=== PATIENT | male | born 1985 | race Caucasian/White ===

== ENCOUNTER 2017-01-25 21:47 | Emergency (ER) | payer OTHER ==
[~2017-01-25] VITALS: Ht 185.4 cm; Wt 122.5 kg
[2017-01-25] MEDS ORDERED: KETOROLAC 60 MG/2 ML VIAL (J1885) IM ONE (23:15)
[2017-01-26] MEDS ORDERED: KETOROLAC TROMETHAMINE 10 MG TAB PO ONE
[2017-01-26] MEDS ORDERED: KETO10TAB PO (00:29)
[2017-01-26 00:34] VITALS: BP 144/87
--- NOTE | 2017-01-26 08:08 | REP ---
Chest two views HISTORY: Cough Comparison: None The lungs are clear. The heart is normal in size. The pulmonary vasculature is normal in appearance. The bony structure is intact. IMPRESSION: No acute disease. Signed by Liu Gold MD 01/26/2017 07:59 A
== END 2017-01-26 00:37 | disposition home or self-care (01) ==
LOC: M ED 23:15
DX: S46.911A Strain of unspecified muscle, fascia and tendon at shoulder and upper arm level, right arm, initial encounter (principal); S46.912A Strain of unspecified muscle, fascia and tendon at shoulder and upper arm level, left arm, initial encounter; X58.XXXA Exposure to other specified factors, initial encounter; Y92.89 Other specified places as the place of occurrence of the external cause; Y93.89 Activity, other specified; Y99.8 Other external cause status; R05 Cough

== ENCOUNTER 2021-05-29 21:12 | Emergency (ER) | payer OTHER ==
[~2021-05-29] VITALS: Ht 182.9 cm; Wt 149.5 kg
[2021-05-29 21:12] VITALS: BP 140/91
[~2021-05-29 21:12] MED LIST: KETO10TAB PO
[2021-05-30] MEDS ORDERED: CLOT1CRE56 TOP (16:23)
== END 2021-05-29 21:21 | disposition left against medical advice (07) ==
LOC: M ED 21:12
DX: Z53.29 Procedure and treatment not carried out because of patient's decision for other reasons (principal)

== ENCOUNTER 2021-05-30 12:15 | Emergency (ER) | payer OTHER ==
[~2021-05-30] VITALS: Ht 182.9 cm; Wt 149.8 kg
--- NOTE | 2021-05-30 15:31 | REP ---
INDICATION: r/o L inguinal hernia. COMPARISON: None. TECHNIQUE: Left inguinal canal sonography. With and without Valsalva maneuver. FINDINGS: There are several hypertrophied lymph nodes in the left groin soft tissues. The largest of these measures 5.1 x 1.1 x 3.4 cm. There is cortical hypertrophy with some preservation of fatty hilar architecture. No abnormal fluid collection is seen. There appears to be fat containing left inguinal hernia with little change with Valsalva. IMPRESSION: There is left inguinal lymphadenopathy of uncertain significance. Consider follow-up scan to document stability. Findings consistent with a small left inguinal hernia containing abdominal fat. <Electronically signed by Anil Solorio > 05/30/21 [id number]
[2021-05-30 15:39] LABS: BASO # 0.1 10^3/uL (0.0-0.2); BASO % 0.6 % (0.0-1.0); EOS # 0.4 10^3/uL (0.0-0.5); EOS % 3.8 % (0.0-3.0); HEMATOCRIT 47.1 % (42.0-52.0); HEMOGLOBIN 15.7 g/dl (13.5-17.5); LYMPH # 2.5 10^3/uL (1.5-5.0); LYMPH % 23.1 % (24.0-44.0); MEAN CORPUSCULAR HEMOGLOBIN 30.8 pg (27.0-33.0); MEAN CORPUSCULAR HGB CONC 33.3 g/dl (32.0-36.5); MEAN CORPUSCULAR VOLUME 92.4 fl (80.0-96.0); MONO # 0.6 10^3/uL (0.0-0.8); MONO % 5.3 % (2.0-8.0); NEUTROPHILS # 7.2 10^3/uL (1.5-8.5); NEUTROPHILS % 66.3 % (36.0-66.0); PLATELET COUNT, AUTOMATED 250 10^3/uL (150-450); WHITE BLOOD COUNT 10.9 10^3/uL (4.0-10.0)
[2021-05-30 16:10] LABS: ALBUMIN 3.2 GM/DL (3.2-5.2); ALT/SGPT 87 U/L (12-78); BILIRUBIN,DIRECT < 0.1 MG/DL (0.0-0.2); BILIRUBIN,TOTAL 0.4 MG/DL (0.2-1.0); BLOOD UREA NITROGEN 11 MG/DL (7-18); CALCIUM LEVEL 9.3 MG/DL (8.5-10.1); CARBON DIOXIDE LEVEL 23 MEQ/L (21-32); CHLORIDE LEVEL 106 MEQ/L (98-107); CREATININE FOR GFR 0.82 MG/DL (0.70-1.30); GLOMERULAR FILTRATION RATE > 60.0 (>60); GLUCOSE, FASTING 125 MG/DL (70-100); SODIUM LEVEL 136 MEQ/L (136-145); TOTAL PROTEIN 7.7 GM/DL (6.4-8.2)
[2021-05-30] MEDS ORDERED: CLOT1CRE56 TOP (16:23)
[2021-05-30 16:32] VITALS: BP 138/72
[2021-05-30 17:09] LABS: GC DNA AMPLIFICATION NEGATIVE (NEGATIVE)
== END 2021-05-30 16:33 | disposition home or self-care (01) ==
LOC: M ED 12:15
DX: K40.90 Unilateral inguinal hernia, without obstruction or gangrene, not specified as recurrent (principal); R59.9 Enlarged lymph nodes, unspecified; F17.210 Nicotine dependence, cigarettes, uncomplicated

== ENCOUNTER → 2021-06-06 | Outpatient (CLI) | payer OTHER ==
[~2021-06-06] MED LIST changes: +CLOT1CRE56 TOP
[2021-06-06 17:57] LABS: BASO # 0.1 10^3/uL (0.0-0.2); BASO % 0.5 % (0.0-1.0); EOS # 0.3 10^3/uL (0.0-0.5); EOS % 2.5 % (0.0-3.0); HEMATOCRIT 46.6 % (42.0-52.0); HEMOGLOBIN 15.5 g/dl (13.5-17.5); LYMPH # 2.3 10^3/uL (1.5-5.0); LYMPH % 20.9 % (24.0-44.0); MEAN CORPUSCULAR HEMOGLOBIN 30.9 pg (27.0-33.0); MEAN CORPUSCULAR HGB CONC 33.3 g/dl (32.0-36.5); MEAN CORPUSCULAR VOLUME 92.8 fl (80.0-96.0); MONO # 0.6 10^3/uL (0.0-0.8); MONO % 5.1 % (2.0-8.0); NEUTROPHILS # 7.6 10^3/uL (1.5-8.5); NEUTROPHILS % 70.1 % (36.0-66.0); PLATELET COUNT, AUTOMATED 258 10^3/uL (150-450); RED BLOOD COUNT 5.02 10^6/uL (4.30-6.10); WHITE BLOOD COUNT 10.9 10^3/uL (4.0-10.0)
[2021-06-06 18:04] LABS: INR 0.92; PROTHROMBIN TIME 12.8 SECONDS (12.7-14.5)
[2021-06-06 18:05] LABS: PARTIAL THROMBOPLASTIN TIME 28.1 SECONDS (25.9-37.0)
[2021-06-06 18:14] LABS: ALBUMIN 3.3 GM/DL (3.2-5.2); ALT/SGPT 73 U/L (12-78); BILIRUBIN,TOTAL 0.3 MG/DL (0.2-1.0); BLOOD UREA NITROGEN 11 MG/DL (7-18); C REACTIVE PROTEIN QUANTITATIV 1.53 MG/DL (0.00-0.30); CALCIUM LEVEL 9.4 MG/DL (8.5-10.1); CARBON DIOXIDE LEVEL 29 MEQ/L (21-32); CHLORIDE LEVEL 105 MEQ/L (98-107); CREATININE FOR GFR 0.76 MG/DL (0.70-1.30); GLOMERULAR FILTRATION RATE > 60.0 (>60); GLUCOSE, FASTING 99 MG/DL (70-100); POTASSIUM SERUM 4.5 MEQ/L (3.5-5.1); SODIUM LEVEL 138 MEQ/L (136-145); TOTAL PROTEIN 7.5 GM/DL (6.4-8.2)
[2021-06-06 18:26] LABS: ERYTHROCYTE SEDIMENTATION RATE 34 mm/hr (0-15)
[2021-06-06 18:28] LABS: HEPATITIS B SURFACE ANTIBODY NEGATIVE (POSITIVE)
[2021-06-06 18:38] LABS: HEPATITIS B SURFACE ANTIGEN NEGATIVE (NEGATIVE)
[2021-06-06 19:06] LABS: HEPATITIS C VIRUS ABY INDEX < 0.0 INDEX (<0.8)
[2021-06-06 19:08] LABS: HEPATITIS A ANTIBODY IGM NEGATIVE (NEGATIVE)
== END ==
LOC: M PLALAB 15:26
PROVIDERS: ATTEND Physician Assistant Medical
DX: R79.89 Other specified abnormal findings of blood chemistry (principal)

== ENCOUNTER → 2021-06-08 | Outpatient (CLI) | payer OTHER ==
--- NOTE | 2021-06-08 14:40 | REP ---
INDICATION: ABD LYMPHADENOPATHY ABN IMAG US COMPARISON: None. TECHNIQUE: CT Scan of the abdomen and pelvis was performed without intravenous contrast. Sagittal and coronal reconstruction images performed. FINDINGS: Lung bases: Unremarkable. Liver: There is hepatomegaly. The length of the liver is approximately 21 cm.. Gallbladder: Unremarkable. Spleen: There is mild splenomegaly. The length of the spleen is approximately 14 cm. Adrenals: Normal. Pancreas: Grossly unremarkable.. Kidneys: No hydronephrosis or nephrolithiasis left kidney. The right kidney appears congenitally absent. Small and large bowel: Grossly unremarkable. Free fluid: None. Abdominal aorta: No aneurysm. Adenopathy: None. Appendix: Not inflamed. Osseous structures: Unremarkable. Pelvis: There is a small left inguinal hernia containing fat. The sigmoid colon is located just superior to the left internal inguinal ring, there is mild edema in the pericolonic fat in this region of the sigmoid colon. IMPRESSION: Mild hepatosplenomegaly. No adenopathy in the abdomen or pelvis, nor in either inguinal region. Congenitally absent right kidney. Small left inguinal hernia contains fat. The sigmoid colon appears tethered inferiorly and is located just superior to the left internal inguinal ring. The pericolonic fat in this region is mildly edematous. <Electronically signed by Agustin Menon > 06/08/21 [id number]
== END ==
LOC: M RAD 13:49
PROVIDERS: ATTEND Physician Assistant Medical
DX: K40.90 Unilateral inguinal hernia, without obstruction or gangrene, not specified as recurrent (principal); R16.2 Hepatomegaly with splenomegaly, not elsewhere classified; Z90.5 Acquired absence of kidney

== ENCOUNTER → 2021-06-15 | Outpatient (CLI) | payer OTHER | LOC: M LABSMTC 11:32 | PROVIDERS: ATTEND Pediatrics | DX: Z20.822 Contact with and (suspected) exposure to COVID-19 (principal) ==